=== PATIENT | male | born 2000 | race Caucasian/White ===

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

== ENCOUNTER 2018-10-30 16:26 | Emergency (ER) | payer BC ==
[2018-10-30 17:15] VITALS: BP 116/56
--- NOTE | 2018-10-30 17:22 | UC ---
Throat Pain/Nasal Miguel HPI - HPI Summary HPI Summary: Patient presents to urgent care with sore throat, sinus congestion, body aches, fever, frontal headache that all progressed over the last 36 hours. Patient states he feels painful swallowing but is not drooling. Patient did take some medication for his fever earlier today that he said was 102. Patient states his ears feel like they're popping. Patient with mild nausea but no vomiting. Diarrhea or dysuria. Patient denies sick contacts. Patient states somebody at work was sick last week but not like this. Patient did not go to his work today states he does state bed all day. Patient medications reviewed this visit and he does take allergy medication - History of Current Complaint Chief Complaint: UCRespiratory Stated Complaint: SORE THROAT,AGURIRE,BODY ACHES,CHILLS Time Seen by Provider: 10/30/18 17:22 Hx Obtained From: Patient Onset/Duration: Gradual Onset Severity: Moderate Pain Intensity: 7 Pain Scale Used: 0-10 Numeric - Allergies/Home Medications Allergies/Adverse Reactions: Allergies Allergy/AdvReac Type Severity Reaction Status Date / Time seasonal Allergy Runny Nose Uncoded 10/30/18 17:05 Home Medications: Home Medications Montelukast Sodium TAB* [Singulair TAB*] 10 mg PO DAILY 10/30/18 [History Confirmed 10/30/18] Otc Allergy Med PRN 10/30/18 [History] Otc Congestion Med PRN 10/30/18 [History] PMH/Surg Hx/FS Hx/Imm Hx Previously Healthy: Yes - Surgical History Surgical History: None - Family History Known Family History: Positive: Cardiac Disease, Non-Contributory - Social History Occupation: Employed Full-time Lives: With Family Alcohol Use: Weekly Substance Use Type: None Smoking Status (MU): Never Smoked Tobacco Have You Smoked in the Last Year: No Review of Systems All Other Systems Reviewed And Are Negative: Yes Constitutional: Positive: Fever, Fatigue Skin: Positive: Negative ENT: Positive: Nasal Discharge, Sinus Congestion, Sinus Pain/Tenderness Respiratory: Positive: Cough Cardiovascular: Positive: Negative Gastrointestinal: Positive: Negative Genitourinary: Positive: Negative Musculoskeletal: Positive: Myalgia Neurological: Positive: Headache Psychological: Positive: Negative Physical Exam - Summary Physical Exam Summary: Vital Signs Reviewed: Yes A+Ox3, tired appearing Eyes: Conjunctiva Clear, HEATHER. EOM intact and full ENT: Hearing grossly normal TM x 2 clear, turbinates inflammed and boggy, + PND , + max sinus pressuer mmoist, uvula midline, + exudate, + erythema Neck: Positive: Supple Respiratory: Positive: No respiratory distress, No accessory muscle use + CTA throughout no w/r Cardiovascular: RRR nl s1, s2 no m/r CBT <2 sec abd soft + BS nt/nd no guarding, no distension Musculoskeletal Exam: REES x 4 without difficulty Strength Intact, ROM Intact Neurological: Positive: Alert, + sensation throughout Psychological: Positive: Normal Response To Family Skin: Positive: no rash, no ecchymosis Triage Information Reviewed: Yes Vital Signs: Initial Vital Signs Temp 99.5 F 10/30/18 17:09 Pulse 80 10/30/18 17:09 Resp 20 10/30/18 17:09 BP 116/56 10/30/18 17:09 Pulse Ox 100 10/30/18 17:09 Throat Pain/Nasal Course/Dx - Course Course Of Treatment: Patient presents to urgent care reporting 48 hours of sore throat sinus congestion postnasal drip frontal headache body aches and fevers. Patient has been taking [id number] medication with short-term relief. Patient states when he swallows she's got a lot of pain in his throat. Patient denies nausea or vomiting. On exam vital signs reviewed. Patient with thick sinus congestion postnasal drip. Patient with exudate and erythema of his tonsils. Uvula midline. Mild edema. No drooling. Patient speaking full easy sentences. Patient able to swallow Motrin without any problem. Given the status of his throat we'll check a throat culture because the rapid strep is negative. Patient urine was non-concerning cyst checked as he stated he had kidney pain. Patient recently started antibiotics prednisone. Recommend strict return precautions as well as follow-up with PCP or physician care center. Patient given note for work today and tomorrow. Patient comfortable - Differential Dx/Diagnosis Provider Diagnosis: Tonsillitis Discharge - Sign-Out/Discharge Documenting (check all that apply): Patient Departure All imaging exams completed and their final reports reviewed: No Studies - Discharge Plan Condition: Stable Disposition: HOME Prescriptions: Azithromycin TAB* [Zithromax TAB (Z-PERNELL) 250 mg #6 tabs] 2 tab PO .TODAY, THEN 1 DAILY #1 pernell predniSONE TAB* [Deltasone TAB*] 50 mg PO DAILY #5 tab Patient Education Materials: Tonsillitis (ED) Forms: *Work Release Referrals: Dillon Chery MD [Primary Care Provider] - Additional Instructions: - stay well hydrated. drink plenty of non-alcoholic, non-caffinated beverages - alternate ibuprofen (Advil, motrin) 600mg and tylenol every 3 hours for pain or fever. Take with food. - gargle and spit with warm, salt water -2-3times a day - take antibiotics and prednisone as prescribed - contact your doctor to schedule a follow-up appointment. If you have uncontrolled fever, difficulty swallowing, vomiting, or any other concerns it is recommended you go directly to the emergency department - Billing Disposition and Condition Condition: STABLE Disposition: Home
[2018-10-30] MEDS ORDERED: Ibuprofen TAB* 600 MG PO ONE (17:42)
--- NOTE | 2018-11-02 07:27 | UC ---
- Progress Note Progress Note: notify pt of results Z-pernell likely effective recheck if not markedly improved Course/Dx - Diagnoses Provider Diagnoses: Tonsillitis Discharge - Sign-Out/Discharge Documenting (check all that apply): Post-Discharge Follow Up All imaging exams completed and their final reports reviewed: No Studies - Discharge Plan Condition: Stable Disposition: HOME Prescriptions: Azithromycin TAB* [Zithromax TAB (Z-PERNELL) 250 mg #6 tabs] 2 tab PO .TODAY, THEN 1 DAILY #1 pernell predniSONE TAB* [Deltasone TAB*] 50 mg PO DAILY #5 tab Patient Education Materials: Tonsillitis (ED) Forms: *Work Release Referrals: Dillon Chery MD [Primary Care Provider] - Additional Instructions: - stay well hydrated. drink plenty of non-alcoholic, non-caffinated beverages - alternate ibuprofen (Advil, motrin) 600mg and tylenol every 3 hours for pain or fever. Take with food. - gargle and spit with warm, salt water -2-3times a day - take antibiotics and prednisone as prescribed - contact your doctor to schedule a follow-up appointment. If you have uncontrolled fever, difficulty swallowing, vomiting, or any other concerns it is recommended you go directly to the emergency department - Billing Disposition and Condition Condition: STABLE Disposition: Home
== END 2018-10-30 18:06 | disposition home or self-care (01) ==
LOC: UCCORT 16:26
DX: J03.90 Acute tonsillitis, unspecified (principal)
CPT/HCPCS: 81003; 87070; 87077; 87651; 99212; A9270-GY; G0463